=== PATIENT | male | born 1990 | race Caucasian/White ===

== ENCOUNTER 2019-04-20 19:36 | Emergency (ER) | payer OTHER ==
[~2019-04-20] VITALS: Ht 170.2 cm; Wt 88.5 kg
[2019-04-20] MEDS ORDERED: FINASTERIDE1 MG (20:07)
[2019-04-20] MEDS ORDERED: NAPROSYN500 MG PO (20:38)
[2019-04-20 20:49] VITALS: BP 128/90
[2019-04-21] MEDS ORDERED: LEVSIN0.125 MG PO (11:50)
[2019-04-21] MEDS ORDERED: PRILOSEC OTC20 MG PO (11:50)
[2019-04-21] MEDS ORDERED: NORFLEX100 MG PO (11:50)
[2019-04-21] MEDS ORDERED: ATIVAN0.5 M1 PO (12:48)
== END 2019-04-20 20:52 | disposition home or self-care (01) ==
LOC: ER 19:36
DX: M54.6 Pain in thoracic spine (principal); R06.02 Shortness of breath; F17.210 Nicotine dependence, cigarettes, uncomplicated

== ENCOUNTER 2019-04-21 10:15 | Emergency (ER) | payer OTHER ==
[~2019-04-21] VITALS: Ht 170.2 cm; Wt 88.5 kg
[~2019-04-21 10:15] MED LIST: FINASTERIDE1 MG; NAPROSYN500 MG PO
[2019-04-21 11:01] LABS: ABSOLUTE NEUTROPHILS 5.4 thou/uL (1.4-8.2); BASOPHILS 0.8 % (0.0-2.0); EOSINOPHILS 0.5 % (0.0-3.0); HEMATOCRIT 43.6 % (42.0-52.0); HEMOGLOBIN 15.3 gm/dL (14.0-18.0); LYMPHOCYTES 28.2 % (24.0-44.0); MCH 29.6 pg (26.0-34.0); MCHC 35.1 g/dL (28.0-37.0); MCV 84.3 fL (80.0-100.0); MONOCYTES 5.9 % (1.0-8.0); PLATELET COUNT 256 thou/uL (150-400); POLYS 64.6 % (36.0-66.0); RBC 5.17 mil/uL (4.50-6.00); RDW 13.5 % (10.5-14.5); WBC 8.3 thou/uL (4.0-11.0)
[2019-04-21 11:09] LABS: ANION GAP 14 mmol/L (7-16); BUN 17 mg/dL (7-18); CALCIUM 10.7 mg/dL (8.5-10.1); CHLORIDE 102 mmol/L (98-107); CO2 21 mmol/L (21-32); CREATININE 0.9 mg/dL (0.7-1.3); GLUCOSE 102 mg/dL (74-106); POTASSIUM 3.7 mmol/L (3.5-5.1); SODIUM 137 mmol/L (136-145)
[2019-04-21 11:19] LABS: ALBUMIN 5.1 g/dL (3.4-5.0); LIPASE 149 U/L (73-393); SGOT 21 U/L (15-37); SGPT 16 U/L (30-65); TOTAL BILIRUBIN 0.5 mg/dL (<0.1-1.0); TOTAL PROTEIN 8.5 g/dL (6.4-8.2); TROPONIN-I <0.06 ng/mL (<0.06)
[2019-04-21] MEDS ORDERED: LEVSIN0.125 MG PO (11:50)
[2019-04-21] MEDS ORDERED: PRILOSEC OTC20 MG PO (11:50)
[2019-04-21] MEDS ORDERED: NORFLEX100 MG PO (11:50)
[2019-04-21] MEDS ORDERED: ATIVAN0.5 M1 PO (12:48)
[2019-04-21 12:54] VITALS: BP 126/60
--- NOTE | 2019-04-21 17:20 | EKG ---
[place] [address] [facility] [employer] [place] [address] ELECTROCARDIOGRAM REPORT Name: SILVA YODER Room #: [facility] Bowie#: [id number] Admission: 04/21/19 Attend Phys: Discharge: 04/21/19 Date of : 89 Report #: [id number] THIS REPORT FOR: //name// [facility] ED Test Date: 2019-04-21 Test Time: 10:55:20 Pat Name: SILVA YODER Department: Room: Gender: [employer] Instructor: allison : 1990 Requested By: Jb Luther Order Number: [id number] MD: Ulysses Cutler Measurements Intervals [place] Rate: 71 P: 25 WI: 136 QRS: 25 QRSD: 94 T: 8 QT: 366 QTc: 398 Interpretive Statements Sinus rhythm No significant abnormality No previous ECG available for comparison Electronically Signed On 04-21-2019 17:20:32 PROOF TECHNICIAN by Ulysses Cutler [email or web address] <ELECTRONICALLY SIGNED> By: Ulysses Cutler MD, [facility] 04/21/19 1720 1055 1055 Ulysses Cutler MD, FACC /EPI
== END 2019-04-21 12:55 | disposition home or self-care (01) ==
LOC: ER 10:15
PROVIDERS: Emergency Medicine
DX: M62.830 Muscle spasm of back (principal); R10.12 Left upper quadrant pain; R06.4 Hyperventilation; F15.10 Other stimulant abuse, uncomplicated; F17.210 Nicotine dependence, cigarettes, uncomplicated